=== PATIENT | female | born 1995 | race Two or more races ===

== ENCOUNTER 2023-01-05 03:34 | Emergency (ER) | payer SELFPAY ==
[~2023-01-05] VITALS: Ht 167.6 cm; Wt 77.1 kg
[2023-01-05 03:50] VITALS: BP 148/72; PULSE 114; RESP 22; O2SAT 99
[2023-01-05] MEDS ORDERED: HYDROcodone-ACET 5/325MG TAB PO ONE (04:15)
== END 2023-01-05 04:50 | disposition left against medical advice (07) ==
LOC: ER 03:34
DX: S09.93XA Unspecified injury of face, initial encounter (principal); Z53.21 Procedure and treatment not carried out due to patient leaving prior to being seen by health care provider; W01.0XXA Fall on same level from slipping, tripping and stumbling without subsequent striking against object, initial encounter; Y93.89 Activity, other specified; Y92.89 Other specified places as the place of occurrence of the external cause; Y99.8 Other external cause status